=== PATIENT | male | born 1995 | race Caucasian/White ===

== ENCOUNTER 2017-10-25 22:57 | Emergency (ER) | payer SELFPAY, OTHER | END 2017-10-26 00:58 | disposition left against medical advice (07) | LOC: E/R 22:57 | DX: Z53.21 Procedure and treatment not carried out due to patient leaving prior to being seen by health care provider (principal) ==

== ENCOUNTER 2017-11-11 03:47 | Emergency (ER) | payer OTHER ==
[2017-11-11] MEDS ORDERED: CLINDAMYCIN 300 MG INJ IM (04:30)
== END 2017-11-11 04:58 | disposition home or self-care (01) ==
LOC: FTE 03:47
DX: J02.9 Acute pharyngitis, unspecified (principal)
CPT/HCPCS: 99283; Z7502